=== PATIENT | male | born 1960 | race Caucasian/White ===

== ENCOUNTER 2021-07-01 18:04 | Emergency (ER) | payer OTHER, MEDICARE | END 2021-07-01 23:25 | disposition home or self-care (01) | LOC: ER1 18:04 | DX: S81.812A Laceration without foreign body, left lower leg, initial encounter (principal); E11.9 Type 2 diabetes mellitus without complications; I10 Essential (primary) hypertension; W22.8XXA Striking against or struck by other objects, initial encounter; Y93.9 Activity, unspecified | CPT/HCPCS: 12001; 99283 ==